=== PATIENT | female | born 1950 | race Caucasian/White ===

== ENCOUNTER 2016-05-25 09:52 | Inpatient (IN) | payer OTHER ==
[~2016-05-25] VITALS: Ht 160 cm; Wt 82.0 kg
[~2016-05-25 09:52] MED LIST: ALDACTAZIDE 251 EACH PO; AMLOD-VALSA-HC1 EACH PO; Aldactazide 25/25 PO; Aldactone PO; COUMADIN4 MG PO; Climara TD; Colace PO; Coumadin Protocol PO; DEXILANT60 MG PO; ELAVIL25 MG PO; Elavil PO; FEOSOL325 MG PO; Feosol PO; GEMFIBROZIL600 MG PO; HYDROCODON-ACE1 EAC7 PO; LEVO-T150 MCG PO; LEVOTHYROXINE125 MCG PO; LISINOPRIL20 MG PO; Levothroid,Synthroid PO; Lopid PO; METOPROLOL SUC200 MG PO; MINIVELLE1 EACH TD; Miralax, Glycolax PO; PRAVACHOL40 MG PO; PRAVASTATIN SOD80 MG PO; PROTONIX40 MG PO; Pravachol PO; Protonix PO; SPIRONOLACT/HC1 EACH PO; Senokot S,Pericolace PO; TRAMADOL HCL50 MG PO; Toprol XL PO; Vicodin,Norco 5/325 PO; Zestril,Prinivil PO
[2016-05-25 12:58] VITALS: BP 136/62
[2016-05-25] MEDS ORDERED: FENOFIBRATE160 M1 PO (13:05)
[2016-05-25 19:00] VITALS: BP 157/76
[2016-05-26] VITALS: BP 148/72
[2016-05-26 04:00] VITALS: BP 140/76
[2016-05-26 05:50] LABS: HEMATOCRIT 34.9 % (36.0-46.0); MCV 94.8 FL (83-99)
[2016-05-26 07:48] VITALS: BP 134/69
[2016-05-26] MEDS ORDERED: SENNA PLUS TAB1 EACH PO (08:33)
[2016-05-26] MEDS ORDERED: ASPIRIN EC325 MG PO (08:34)
[2016-05-26] MEDS ORDERED: HYDROCODON-ACE1 EAC7 PO (08:35)
== END 2016-05-26 10:06 | disposition home or self-care (01) | DRG 483 ==
LOC: 2SOUTH 09:52 → 3EAST 18:28
PROVIDERS: Orthopaedic Surgery
PROC: 0RRK0JZ Replacement of Left Shoulder Joint with Synthetic Substitute, Open Approach (ICD-10-PCS; principal; 2016-05-25)
DX: M19.012 Primary osteoarthritis, left shoulder (principal); I10 Essential (primary) hypertension; E78.5 Hyperlipidemia, unspecified; K21.9 Gastro-esophageal reflux disease without esophagitis; F17.210 Nicotine dependence, cigarettes, uncomplicated; Z90.49 Acquired absence of other specified parts of digestive tract
CPT/HCPCS: 85014; 85018; J0330; J1100; J2250; J2405; J2795; J3010; J7050; J7120

== ENCOUNTER 2017-03-21 12:05 | Inpatient (IN) | payer OTHER ==
[~2017-03-21] VITALS: Ht 160 cm; Wt 83.0 kg
[~2017-03-21 12:05] MED LIST changes: +ASPIRIN EC325 MG PO; +FENOFIBRATE160 M1 PO; +SENNA PLUS TAB1 EACH PO
[2017-03-21 13:24] LABS: HEMATOCRIT 36.6 % (36.0-46.0); MCH 31.8 PG (29.0-34.0); PLATELET COUNT 158 K/uL (156-360); RBC DIS.WIDTH-CV 12.9 % (11.8-14.6); RBC DIS.WIDTH-SD 42.8 % (39-53); RED BLOOD COUNT 4.02 M/uL (3.80-5.20); WHITE BLOOD COUNT 11.2 K/uL (4.1-10.2)
[2017-03-21 13:33] LABS: CHLORIDE 99 mEq/L (99-109); POTASSIUM 3.5 mEq/L (3.7-5.4); SODIUM 138 mEq/L (136-147)
[2017-03-21 13:35] LABS: GLUCOSE 133 mg/dL (70-99)
[2017-03-21 13:36] LABS: ANION GAP 17 MEQ/L (2-14)
[2017-03-21 13:38] LABS: GFR ESTIMATE (CALCULATED) 53 mL/min/
[2017-03-21 13:39] LABS: UREA NITROGEN (BUN) 25 mg/dL (9-23)
[2017-03-21 16:50] LABS: TOTAL BILIRUBIN 0.2 mg/dL (0.0-1.0)
[2017-03-21 16:51] LABS: ALKALINE PHOSPHATASE 122 IU/L (3-129)
[2017-03-21 16:53] LABS: DIRECT BILIRUBIN 0.1 mg/dL (0.0-0.3)
[2017-03-21 16:54] LABS: LIPASE 63 U/L (1.0-51.0)
[2017-03-21 18:05] LABS: TROP-I INTERPRETATION NEGATIVE; TROPONIN-I < 0.01 ng/mL (0.0-0.30)
[2017-03-21 18:07] LABS: ADD MIUA? NO; BILIRUBIN NEGATIVE; BLOOD NEGATIVE; COLOR STRAW ((YELLOW)); GLUCOSE (STRIP) NEGATIVE; KETONES NEGATIVE; LEUKOCYTES NEGATIVE; NITRITE NEGATIVE; PROTEIN (STRIP) NEGATIVE; SPECIFIC GRAVITY 1.019 (1.000-1.030); UCUL ADDED? NO; UROBILINOGEN 0.2 MG/DL (0.2-1.0)
[2017-03-21 18:30] LABS: INTACT PARATHYROID HORMONE 13 pg/mL (10-69)
[2017-03-21 20:02] LABS: MAGNESIUM 1.3 mg/dL (1.3-2.7)
[2017-03-21] MEDS ORDERED: CRESTOR10 MG PO (20:02)
[2017-03-21 22:19] VITALS: BP 159/81
[2017-03-22] VITALS (7 sets, daily range): BP systolic 120–173; BP diastolic 56–84
[2017-03-22 01:14] LABS: ADD MIUA? NO; BILIRUBIN NEGATIVE; BLOOD NEGATIVE; COLOR STRAW ((YELLOW)); GLUCOSE (STRIP) NEGATIVE; KETONES NEGATIVE; LEUKOCYTES NEGATIVE; NITRITE NEGATIVE; PROTEIN (STRIP) NEGATIVE; SPECIFIC GRAVITY 1.011 (1.000-1.030); UCUL ADDED? NO; UROBILINOGEN 0.2 MG/DL (0.2-1.0)
[2017-03-22 05:00] LABS: MAGNESIUM 1.2 mg/dL (1.3-2.7)
[2017-03-22 09:16] LABS: MCH 31.7 PG (29.0-34.0); MCHC 34.1 G/DL (30.0-36.0); MCV 92.9 FL (83-99); MEAN PLAT.VOLUME 10.5 uM^3 (9.5-12.4); PLATELET COUNT 156 K/uL (156-360); RBC DIS.WIDTH-SD 44.1 % (39-53); WHITE BLOOD COUNT 7.9 K/uL (4.1-10.2)
[2017-03-22 10:08] LABS: ANION GAP 13 MEQ/L (2-14); CHLORIDE 102 MEQ/L (99-109); GFR ESTIMATE (CALCULATED) > 59 mL/min/; GLUCOSE 152 mg/dL (70-99); POTASSIUM 3.8 MEQ/L (3.7-5.4); SAMPLE HEMOLYSIS CHECK 0; SAMPLE ICTERIC CHECK 0; SAMPLE LIPEMIA CHECK 0; SODIUM 141 MEQ/L (136-147); UREA NITROGEN (BUN) 15 mg/dL (9-23)
[2017-03-23 03:59] VITALS: BP 124/59
[2017-03-23 05:30] LABS: HEMATOCRIT 34.4 % (36.0-46.0); MCH 30.6 PG (29.0-34.0); MCHC 32.8 G/DL (30.0-36.0); MCV 93.2 FL (83-99); MEAN PLAT.VOLUME 10.5 uM^3 (9.5-12.4); PLATELET COUNT 170 K/uL (156-360); RBC DIS.WIDTH-CV 12.9 % (11.8-14.6); RBC DIS.WIDTH-SD 44.5 % (39-53); RED BLOOD COUNT 3.69 M/uL (3.80-5.20); WHITE BLOOD COUNT 7.8 K/uL (4.1-10.2)
[2017-03-23 05:54] LABS: ALKALINE PHOSPHATASE 112 IU/L (3-129); ANION GAP 11 MEQ/L (2-14); CHLORIDE 106 MEQ/L (99-109); GFR ESTIMATE (CALCULATED) > 59 mL/min/; GLUCOSE 95 mg/dL (70-99); MAGNESIUM 1.3 mg/dl (1.3-2.7); SAMPLE HEMOLYSIS CHECK 0; SAMPLE ICTERIC CHECK 0; SAMPLE LIPEMIA CHECK 0; SODIUM 141 MEQ/L (136-147); TOTAL BILIRUBIN 0.4 MG/DL (0.0-1.0); UREA NITROGEN (BUN) 10 mg/dL (9-23)
[2017-03-23] MEDS ORDERED: VITAMIN D10000 UNIT PO (07:00)
[2017-03-23] MEDS ORDERED: MAGOX 400400 MG PO (07:04)
[2017-03-23 08:04] VITALS: BP 149/69
== END 2017-03-23 10:32 | disposition home or self-care (01) | DRG 641 ==
LOC: EME 12:05 → EDOF 20:06 → 4EAST 20:06 → ENRESERV 20:08 → 4EAST 22:05
PROVIDERS: Hospitalist; Internal Medicine; Physician Assistant
DX: E83.51 Hypocalcemia (principal); E83.42 Hypomagnesemia; K52.9 Noninfective gastroenteritis and colitis, unspecified; R33.9 Retention of urine, unspecified; N28.1 Cyst of kidney, acquired; M54.9 Dorsalgia, unspecified; G89.29 Other chronic pain; E87.6 Hypokalemia; N20.0 Calculus of kidney; E11.9 Type 2 diabetes mellitus without complications; K21.9 Gastro-esophageal reflux disease without esophagitis; E78.5 Hyperlipidemia, unspecified; M19.90 Unspecified osteoarthritis, unspecified site; I10 Essential (primary) hypertension; F17.210 Nicotine dependence, cigarettes, uncomplicated; Z88.5 Allergy status to narcotic agent; Z96.611 Presence of right artificial shoulder joint; Z96.652 Presence of left artificial knee joint; Z90.49 Acquired absence of other specified parts of digestive tract; Z88.0 Allergy status to penicillin; Z88.2 Allergy status to sulfonamides; Z88.6 Allergy status to analgesic agent; Z80.8 Family history of malignant neoplasm of other organs or systems; Z81.1 Family history of alcohol abuse and dependence; Z83.79 Family history of other diseases of the digestive system
CPT/HCPCS: 71020; 74177; 80048; 80053; 80076; 81003; 82306; 82310; 83690; 83735; 83970; 84100; 84484; 85027; 87493; 93005; 99281; 99285; J0610; J1650; J3010; J3475; J3480; J7030; J7050; S0028

== ENCOUNTER 2017-07-19 07:23 | Day surgery (SDC) | payer OTHER ==
[~2017-07-19] VITALS: Ht 160 cm; Wt 81.6 kg
[~2017-07-19 07:23] MED LIST changes: +CALCIUM GUMMIE1 EACH PO; +CATAPRES0.1 MG PO; +CENTRUM SILVER1 EAC4 PO; +CINNAMON500 MG PO; +CRESTOR10 MG PO; +ERGOCALCIF50000 UNIT PO; +MAGNESIUM GLUCO30 MG PO; +MAGNESIUM GLUCONATE PO; +MAGOX 400400 MG PO; +MEGA BIOTIN10000 MCG PO; +MOMETASONE FURO45 GM TP; +NORCO 10/3251 TABLET PO; +PEPCID40 MG PO; +VITAMIN C1000 MG PO; +VITAMIN D10000 UNIT PO
[2017-07-19 08:06] VITALS: BP 140/70
[2017-07-19] MEDS ORDERED: ULTRAM50 MG PO (13:22)
[2017-07-19 14:30] VITALS: BP 195/83
[2017-07-19 14:45] VITALS: BP 155/70
== END 2017-07-19 15:11 | disposition home or self-care (01) ==
LOC: SDC 07:23 → NUC 07:23 → SDC 09:00
PROVIDERS: Surgery
DX: C43.72 Malignant melanoma of left lower limb, including hip (principal); T86.828 Other complications of skin graft (allograft) (autograft); J44.9 Chronic obstructive pulmonary disease, unspecified; M19.90 Unspecified osteoarthritis, unspecified site; E78.5 Hyperlipidemia, unspecified; I10 Essential (primary) hypertension; E03.9 Hypothyroidism, unspecified; E66.9 Obesity, unspecified; Z68.32 Body mass index [BMI] 32.0-32.9, adult; F17.200 Nicotine dependence, unspecified, uncomplicated; E55.9 Vitamin D deficiency, unspecified; Z96.659 Presence of unspecified artificial knee joint; Z88.0 Allergy status to penicillin; Z88.2 Allergy status to sulfonamides; Z88.6 Allergy status to analgesic agent; Z91.048 Other nonmedicinal substance allergy status; Z80.8 Family history of malignant neoplasm of other organs or systems; Z83.79 Family history of other diseases of the digestive system; Y83.2 Surgical operation with anastomosis, bypass or graft as the cause of abnormal reaction of the patient, or of later complication, without mention of misadventure at the time of the procedure
CPT/HCPCS: 78195; 78999; 82948; 88305; 88341 TC; 88342 TC; A9541; J0690; J1100; J1170; J2250; J2405; J2710; J7643; S0020